=== PATIENT | male | born 1955 | race Caucasian/White ===

== ENCOUNTER 2025-06-15 09:56 | Emergency (ER) | payer MEDICARE, SELFPAY ==
--- NOTE | ~2025-06-15 | XR_ITS ---
EXAMINATION: XR abdomen obstructive series, 06/15/2025 10:30 PHP WEB DEVELOPER HISTORY: difficulty voiding and constipation/diarrheaX 3 DAYS COMPARISON: No comparisons available. Technique: 3 view. Findings: Bowel gas pattern unremarkable. No obstruction. No free air. No abnormal calcifications No acute osseous abnormality. Impression: 1. No acute abnormality. Reviewed, dictated and finalized at location P. WEB DEVELOPER Impression: 1. No acute abnormality.
[2025-06-15 10:19] VITALS: BP 144/72; PULSE 98; RESP 18; TEMP 36.9; O2SAT 100
--- NOTE | 2025-06-15 10:22 | ED_ITS ---
HPI - Male Genitourinary General Chief complaint: Urogenital-Male Stated complaint: Urinary Problem Time Seen by Provider: 06/15/25 10:23 Source: patient, RN notes reviewed and old records reviewed Mode of arrival: ambulatory Limitations: no limitations History of Present Illness HPI Narrative: 69 year old male who presents to [facility] care with complaints of difficulty urinating for the past 3 days, feels like he has to go and only small amounts come out with no abdominal or any back or flank pain. Patient reports that on 06/11 he had nausea vomiting and diarrhea with headache which has resolved. Patient reports that since 06/12 he feels like he needs to have a bowel movement and when he tries only small amounts of liquid stool comes out. Patient denies any pain to abdomen or any back pain with bowel sounds present in all quadrants. Patient denies any history of kidney stones or prior problems with urination. MD Complaint: other (difficulty urinating and having BM) Onset (ago): day(s) (3 days of difficulty with urination) Duration: constant Severity: moderate Related Data Home Medications ?Medication ?Instructions ?Recorded ?Confirmed ?Last Taken ?Type hydrochlorothiazide 12.5 mg tablet mg 06/15/25 Unknow n History tamsulosin 0.4 mg capsule mg PO 06/15/25 Unknown Hist ory Allergies Allergy/AdvReac Type Severity Reaction Status Date / Time codeine AdvReac Intermediate Nausea and Verified 06/15/25 10:21 Vomiting Review of Systems Review of Systems: CONSTITUTIONAL: Denies fever, chills, or sweats. CARDIOVASCULAR: Denies chest pain, palpitations, or edema. RESPIRATORY: Denies cough or dyspnea. GASTROINTESTINAL: Denies abdominal pain, nausea, vomiting, or diarrhea. did have episode on 06/11 which resolved GENITOURINARY: Reports no dysuria,reports frequency, urgency states difficulty urinating with going only small amounts. Denies flank pain or hematuria, denies any abdominal pain. SKIN: Denies rash or itching. MUSCULOSKELETAL: Denies back pain or myalgia. Denies CVA tenderness NEUROLOGIC: Denies headache All systems reviewed & are unremarkable except as noted in HPI and below PMFSH Past Medical History Medical History (Updated 06/16/25 @ 20:26 by Isabelle Sandoval APRN) Hypertension Surgical History Surgical History (Updated 06/16/25 @ 20:16 by Isabelle Sandoval APRN) History of orthopedic surgery right fibula fracture with hardware Social History Social History (Updated 06/15/25 @ 10:42 by Isabelle Sandoval APRN) Smoking status: Never smoker Alcohol intake: current Alcohol use details: social Comments At time of signature, agree with nursing past medical, surgical, social and family history. There is no relevant family history pertinent to the presenting complaint Exam Narrative: GENERAL: Well-appearing, well-nourished, and in no acute distress. HEAD: Normocephalic, atraumatic. NECK: Supple.no lymphadenopathy CHEST: Clear to auscultation. No respiratory distress.SAO2 100% on room air HEART: Regular rate and rhythm. No murmur heard. Normal peripheral pulses. ABDOMEN: Soft, nontender to palpation, nondistended, normal active bowel sounds. No CVA tenderness difficulty urinating only going small amounts states kind of aches when he urinates.Unable to have normal BM since 13th when he tries to go has small amount of liquid stool bowel sounds present in all quadrants. EXTREMITIES: Normal range of motion. No edema. SKIN: Warm, dry, no rash. NEURO: No focal deficits. Alert and oriented x3. Course Course Level of Care: Express Care Visit Vital Signs Vital signs: Vital Signs Temperature 36.9 C 06/15/25 10:19 Pulse Rate 98 06/15/25 10:19 Respiratory Rate 18 06/15/25 10:19 Blood Pressure 144/72 H 06/15/25 10:19 Pulse Oximetry 100 06/15/25 10:19 Oxygen Delivery Room Air 06/15/25 10:19 Temperature 36.9 C 06/15/25 10:19 Pulse Rate 98 06/15/25 10:19 Respiratory Rate 18 06/15/25 10:19 Blood Pressure 144/72 H 06/15/25 10:19 Pulse Oximetry 100 06/15/25 10:19 Oxygen Delivery Room Air 06/15/25 10:19 reviewed MDM MDM Narrative Medical decision making narrative: 69 year old male presents to express care with complaints of 3 day history of difficulty urinating, voids only in small amounts and also reports difficulty with having normal BM, states small amount of liquid stool only. Urine dip with urine cloudy,negative for leukocytes and nitrite; positive for blood, high specific gravity with ketones, protein, and bilirubin elevated, obstructive KUB done with no obstruction or free sir noted. Recommend OTC medication for constipation and started on Cipro antibiotic. Anticipatory guidance and reasons to seek care in ED reviewed with understanding voiced. Differential Diagnosis Differential Diagnosis: Differential diagnostic considerations for male genitourinary issues include urinary tract infection, priapism, epididymitis, prostatitis, acute retention of urine, inguinal hernia, STI exposure, testicular torsion, Leslye?s gangrene. Lab Data MDM Lab Attestation statement: I personally reviewed the patient's lab results. Lab results narrative: urine dip: glucose negative, bilirubin 1+, ketones 2+, specific gravity greater than or equal to 1.030, blood 2+, pH 6.5, protein 2+, urobilinogen 4.0, nitrite negative, leukocytes negative color justin cloudy sent for culture Labs: Lab Results 06/15/25 Range/Units 10:24 POC Urine Color Tea colored POC Urine Clarity Cloudy POC Urine pH 6.5 POC Ur Specif [place] 1.030 POC Urine Protein 2+ (Negative) POC Ur Glucose (UA) Negative (Negative) POC Urine Ketones 2+ (Negative) POC Urine Blood 2+ (Negative) POC Urine Nitrite Negative (Negative) POC Urine Bilirubin 1+ (Negative) POC Urine Urobilinogen 4.0 POC U Leukocyte Esteras Negative (Negative) Imaging Data Attestation: I personally reviewed and interpreted this imaging study as follows: My impression: no obstruction no free air,bowel gas pattern un remarkable Radiologist's impression: ITS Impressions Abdomen X-Ray 06/15/25 10:42 Impression: 1. [place] [address] XRay Report Signed Patient: Kip Romero : 1955 MR#: [id number] Age: 69 Acct:[id number] Loc: [facility] ADM Date: 06/15/[address]: Ordering Physician: Isabelle Sandoval APRN Date of Service: 06/15/25 Procedure(s): XR abdomen obstructive series Accession Number(s): [id number] cc: Ashly, Vincent DSOUZA; Jaime, Isabelle L. SECURITY INSTALLATION TECHNICIAN~ EXAMINATION: XR abdomen obstructive series, 06/15/2025 10:30 CURRICULUM DEVELOPMENT COORDINATOR HISTORY: difficulty voiding and constipation/diarrheaX 3 DAYS COMPARISON: No comparisons available. Technique: 3 view. Findings: Bowel gas pattern unremarkable. No obstruction. No free air. No abnormal calcifications No acute osseous abnormality. Impression: 1. No acute abnormality. Reviewed, dictated and finalized at location P. ICULUM DEVELOPMENT COORDINATOR Please be advised this is a medical document. It is intended for [id number] communication. It is written in medical language and may contain unfamiliar abbreviations or verbiage. Medical documents are intended to carry relevant information, facts as evident, and the clinical opinion of the practitioner at the time of the encounter. This report may have been done utilizing a voice recognition system. Attempts have been made to correct errors. However, there may be uncorrected grammatical, spelling, and recognition errors present. The file time of this note does not necessarily represent the time of service. Dictated By: Yordy Issa MD 06/15/25 1042 Signed By: <Electronically signed by Yordy Issa MD in OV> Critical Care Time Critical Care Time Critical Care Time: No Discharge Plan Discharge Clinical Impression: Urethritis Constipation Qualifiers: Constipation type: unspecified constipation type Qualified Code(s): K59.00 - Constipation, unspecified Patient Disposition: Home Condition: Stable Instructions: Antibiotic Form, Urethritis (ED) Additional Instructions: Increase fluids especially cranberry juice and water Avoid caffeine and carbonated beverages Antibiotic as directed Tylenol/ibuprofen for pain or fever Follow-up with her primary care provider if further problems or concerns Recheck if you have fever over 101, nausea and vomiting. Miralax daily for constipation and initially take Ducolax suppository If continued difficulty with urination or any increased symptoms or any pain go to the emergency room immediately If your symptoms persist, change or worsen significantly before you can contact your personal physician then please, without delay, go to the emergency department for further evaluation. Follow-up with PCP in 7-10 days or sooner if needed Follow up with PCP soon in regards to your blood pressure which is elevated above threshold for referral. Blood pressure above 120/80 may indicate pre- hypertension. 144/72 Patient Language: [place] Prescriptions: New ciprofloxacin HCl 500 mg tablet 500 mg PO Q12H Qty: 14 0RF Rx Instructions: take with food No Action tamsulosin 0.4 mg capsule PO hydrochlorothiazide 12.5 mg tablet Follow-up/Referrals: Ashly,MD Vincent [Primary Care Provider, Unknown] Time of Disposition: 10:59 Quality [place] Coma Scale Eyes: Open Verbal: Oriented and Alert Motor: Follows Commands Chandan Coma Total Score: 15
[2025-06-15 11:01] LABS: EDUAAPPEAR Cloudy; EDUABILI 1+ (Negative); EDUABLOOD 2+ (Negative); EDUACOLOR1 Tea Colored; EDUAGLUCOSE Negative (Negative); EDUAKETONE 2+ (Negative); EDUALEUKO Negative (Negative); EDUANITRATE Negative (Negative); EDUAPH 6.5; EDUAPROTEIN 2+ (Negative); EDUASPGRAVITY 1.030; EDUAUROBILI 4.0
--- OUTSIDE RECORDS SUMMARY | 2025-06-15 11:22 | XMS_ITS | Clinical Summary ---
Author Organization [facility] Address [address] [place] [address] Care Team Providers [facility] Field Coordinator Name Role Phone Vincent Limon MD Primary Care Provider [phone] Allergies Active Allergy Reactions Criticality Noted Date Comments Codeine Nausea & Vomiting Low 07/01/2018 Medications multivitamin capsuleIndicati ons:Vitamin Deficiency Prevention Take 1 capsule by mouth daily Active calcium acetate (PHOSLO) 667 mg tablet Take 2 tablets (1,334 mg total) by mouth daily Active ascorbic acid (JENIFER-C ORAL) Take by mouth Ac tive sildenafiL (VIAGRA) 50 mg tablet Take 1 tablet (50 mg total) by mouth daily as needed for erectile dysfunction 30 tablet 2 4 Active hydroCHLOROthia zide 12.5 mg tablet Take 1 tablet by mouth once daily 90 tablet 5 Active predniSONE (DELTASONE) 10 mg tabletIndicatio ns: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 13 tablet 5 Active tamsulosin (FLOMAX) 0.4 mg extended release capsule Take 1 capsule by mouth once daily 100 capsule 5 Active Active Problems Problem Noted Date Diagnosed Date Erectile dysfunction 02/20/2024 Assessment & Plan (02/20/2024 3:29 PM CDT): Greatly improved. Minimally requiring p.r.n. use at this time. Plan: Continue sildenafil 50 mg daily p.r.n.. Continue healthy lifestyle and regular exercise. Snoring 02/20/2024 Assessment & Plan (02/20/2024 3:31 PM CDT): Endorses poor sleep quality and snoring. EPS score of 3. Risk factors of hypertension. Ddx of RAJ versus idiopathic snoring. Plan: Will refer to sleep Medicine for further evaluation. Consider trial of bimodal sleep pattern in the interim. Right hip pain 05/09/2022 Assessment & Plan (05/09/2022 9:00 PM PRODUCTION MACHINE COMPUTER OPERATOR): Unclear if piriformis vs hip OA; good relief with Aleve, occasional use Personal history of colonic polyps 04/25/2021 Overview (04/25/2021): Added automatically from request for surgery [id number] Encounter for screening colonoscopy 04/25/2021 Overview (04/25/2021): Added automatically from request for surgery [id number] Dyslipidemia, goal LDL below 100 04/25/2021 Assessment & Plan (08/25/2024 2:25 PM PRODUCTION MACHINE COMPUTER OPERATOR): Stable, well controlled, continue to follow, encourage low-fat high-fiber diet Assessment & Plan (08/07/2023 5:51 PM PRODUCTION MACHINE COMPUTER OPERATOR): LDL above goal; room for improvement in diet; encourage low-fat high-fiber diet Assessment & Plan (05/09/2022 8:58 PM PRODUCTION MACHINE COMPUTER OPERATOR): Lipids generally well controlled, though LDL above target of <100 ASCVD risk is intermediate at 11.9% Encourage low fat, claudia fiber diet Discuss stain therapy if no improvement Assessment & Plan (10/24/2021 2:52 PM CDT): Stable, well controlled; patient has lost about 50 lb since last visit Has been cutting back on eating meals increased activity Encouraged continued dietary and activity changes in order to control weight as well as health risk associated with blood pressure and lipid levels Assessment & Plan (04/25/2021 3:12 PM CDT): Patient has mildly high-normal total cholesterol and LDL cholesterol; ASCVD increased to 14% -patient prefers to avoid medications, will focus on diet and activity changes to improve cholesteol and blood pressure 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 Assessment & Plan (11/06/2022 1:38 PM CDT): Stable, well controlled, continue Viagra 50 mg p.r.n. Assessment & Plan (05/09/2022 8:59 PM PRODUCTION MACHINE COMPUTER OPERATOR): Stable, well controlled; good response to current medications Continue Sildenafil 50 mg prn Assessment & Plan (10/24/2021 2:52 PM CDT): Stable, well controlled; continue sildenafil 50 mg daily as needed Assessment & Plan (04/25/2021 3:13 PM CDT): Stable, well controlled; continue Viagra 50 mg prn Assessment & Plan (01/24/2021 2:44 PM CDT): Some response with nonmedical therapies including penile lean, patient would like to give trial of Viagra Will start Viagra 25 mg, patient can taper up as necessary and will re-evaluate at follow-up appointment to determine best dose for long-term treatment Benign essential hypertension 04/15/2020 Assessment & Plan (08/25/2024 2:24 PM PRODUCTION MACHINE COMPUTER OPERATOR): Stable, well controlled, blood pressure at goal Continue hydrochlorothiazide 12.5 mg daily Assessment & Plan (02/20/2024 3:27 PM CDT): Chronic. Controlled. Asymptomatic. Plan Continue hydrochlorothiazide 12.5 mg b.i.d.. Assessment & Plan (08/07/2023 5:51 PM PRODUCTION MACHINE COMPUTER OPERATOR): Stable, well controlled; blood pressure mildly elevated today; home measurements usually range from 115-125 Continue hydrochlorothiazide 12.5 mg daily Assessment & Plan (11/06/2022 1:38 PM CDT): Stable, well controlled; blood pressure at target with no orthostatics dizziness, no headaches or chest pain Continue hydrochlorothiazide 12.5 mg daily Continue with regular exercise and weight loss Assessment & Plan (05/09/2022 8:59 PM PRODUCTION MACHINE COMPUTER OPERATOR): Stable, well controlled, bp at target Continue HCTZ 12.5 mg daily Assessment & Plan (10/24/2021 2:52 PM CDT): Stable well controlled; no headaches chest pain or orthostatics Continue hydrochlorothiazide 12.5 mg daily Assessment & Plan (04/25/2021 3:13 PM CDT): Well controlled, continue to monitor; encourage impovement to decrease ASCVD risk score -continue HCTZ 12.5 mg Assessment & Plan (01/24/2021 2:44 PM CDT): Stable, well controlled Will continue hydrochlorothiazide 12.5 mg and monitor blood pressure as well as electrolytes with regular metabolic panel Assessment & Plan (07/19/2020 12:46 PM PRODUCTION MACHINE COMPUTER OPERATOR): Stable, well controlled, below target bp of 140/90 Will continue HCTZ 12.5 mg, continue to monitor Assessment & Plan (04/15/2020 11:53 AM CDT): Stable, well controlled Patient reports weight loss of 30-40 lb in the last 10 months and increased physical activity Given health improvements, and concern regarding erectile function will adjust blood pressure medications, discontinue lisinopril and continue hydrochlorothiazide 12.5 Patient to continue to measure blood pressures at home 2-3 times per week and if blood pressures remain greater than 140 systolic or 90 diastolic patient to contact clinic to be adjust blood pressure medicines Follow-up in 3 months given changes to medication Benign prostatic hyperplasia with post-void drib adebayo 04/15/2020 Assessment & Plan (08/25/2024 2:25 PM PRODUCTION MACHINE COMPUTER OPERATOR): Stable, well controlled, good relief with current medications Continue Flomax 0.4 mg daily Assessment & Plan (02/20/2024 3:27 PM CDT): Stable. Well-controlled at this time. Plan: Continue Flomax 0.4 mg daily. Assessment & Plan (08/07/2023 5:51 PM PRODUCTION MACHINE COMPUTER OPERATOR): Stable, well controlled; no major issues with urination Continue tamsulosin 0.4 mg daily, continue to monitor annual PSAs Assessment & Plan (11/06/2022 1:38 PM CDT): Stable, well controlled; no LUTS Continue tamsulosin 0.4 mg daily Assessment & Plan (05/09/2022 9:00 PM PRODUCTION MACHINE COMPUTER OPERATOR): Stable, well controlled; improved urinary stream with medication Continue Tamsulosin 0.4 mg daily Assessment & Plan (10/24/2021 2:52 PM CDT): Stable, well controlled; continue tamsulosin 0.5 mg daily Assessment & Plan (04/25/2021 3:14 PM CDT): Stable, well contolled, continue Tamsulosin 0.4 mg Assessment & Plan (01/24/2021 2:45 PM CDT): Continues to have LUTS, would like to restart tamsulosin 0.4 mg daily at this time Will continue to re-evaluate will determine if patient would benefit from other therapies, are needs referral to Urology for evaluation of other treatment BPH Assessment & Plan (07/19/2020 12:47 PM PRODUCTION MACHINE COMPUTER OPERATOR): Stable, patient reports some continued symptoms of weak urine stream, but declines medical therapy today Assessment & Plan (04/15/2020 11:52 AM CDT): Stable, controlled Patient reports he has no symptoms of nocturia, urinary tension, or incomplete emptying of bladder Only issue is related to postvoid dribbling Patient would like to discontinue medications, gave patient non medical therapies in order to help with postvoid dribbling Will recheck in 3 months to determine if therapy should be restarted Resolved Problems Problem Noted Date Diagnosed Date Resolved Date Displaced fracture of fifth metatarsal bone of left foot with routine healing 08/20/20182018 Status post open reduction a nd internal fixation (ORIF) of syndesmosis 07/21/2018 9 Syndesmotic disruption of an kle, right, initial encounter 07/07/2018 11/21/2018 Overview (07/07/2018): Added automatically from request for surgery [id number] Closed displaced Maisonneuve 's fracture of right leg 07/07/2018 11/21/2018 Overview (07/07/2018): Added automatically from request for surgery [id number] Encounters Date Type Department Care Team Description 04/27/2025 11:45 AM CDT Office Visit [facility] [place] [address] [place] [address] Madelin Jones, EMY 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) from Last 3 Months Immunizations Immunization Administration Dates Next Due Influenza, Quadrivalent, Hig h Dose, Preservative Free, Intrr 05/09/2022,04/25/2021 Influenza, Quadrivalent, Spl it, Intramuscular 06/03/2018,04/27/2016 Influenza, Quadrivalent, Spl it, Preservative Free, Intramuscular 04/15/2020 Influenza, Trivalent, High D ose, Split, Preservative Free, Intramuscular 08/06/2019 Influenza, Unspecified 08/25/2024(Deferr ed: Patient Refused),03/31/2023 Pneumococcal Conjugate PCV 13 07/26/2016 Pneumococcal Polysaccharide PPV23 08/06/2019 Tdap 07/10/2018 Surgical History Surgery Date Site/Laterality Comments KNEE ARTHROSCOPY 07/01/2006 - 06/30/2007 Left FOOT SURGERY 07/01/2018 - 07/31/2018 ANKLE FRACTURE SURGERY 07/01/2018 - 07/31/2018 Bilateral broken tibia, dislocated right ankle COLONOSCOPY 06/11/2014 Medical History Medical History Date Comments Known health problems: none Hypertension Family History Medical History Relation Name Comments Dementia Father Breast cancer Mother Arthritis Neg Hx Cancer Neg Hx Hypertension Neg Hx Stroke Neg Hx Relation Name Status Comments Father Mother Social History Tobacco Use Types Packs/Day Years Used Date Smoking Tobacco: Former Cigarettes Q uit: 1976 Smokeless Tobacco: Never Tobacco Cessation:Counseling Given: Not Answered Alcohol Use Standard Drinks/Week Comments Yes 0 (1 standard drink = 0.6 oz pur e alcohol) social AUDIT-C Answer Date Recorded Q1: How often do you have a drink containing alcohol? 4 or more times a week 02/20/2024 Q2: How many drinks containi ng alcohol do you have on a typical day when you are drinking? 1 or 2 Q3: How often do you have si x or more drinks on one occasion? Never 02/20/2024 PHQ-2 Answer Date Recorded PHQ-2 Total Score (If total score is 3 or more points, staff should administer the PHQ-9) 0 08/25/2024 Sex and Gender Information Value Date Recorded Sex Assigned at Not on file Legal Sex Male 3:11 PM PRODUCTION MACHINE COMPUTER OPERATOR Gender Identity Not on file Sexual Orientation Not on file Last Filed Vital Signs Vital Sign Reading Time Taken Comments Blood Pressure 132/86 04/27/2025 11:28 AM CDT Pulse 59 04/27/2025 11:28 AM CDT Temperature 36.4 C (97.6 F) 04/27/2025 11:28 AM CDT Respiratory Rate 16 04/27/2025 11:28 AM CDT Oxygen Saturation 99% 04/27/2025 11:28 AM CDT Inhaled Oxygen Concentration - - Weight 84.4 kg (186 lb) 04/27/2025 11:28 AM CDT Height 177.8 cm (5' 10) 04/27/2025 11:28 AM CDT Body Mass Index 26.69 04/27/2025 11:28 AM CDT Plan of Treatment Health Maintenance Due Date Last Done Comments Zoster Vaccine (1 of 2) 2004 Influenza Vaccine (#1) 2025 3, 05/09/2022, 04/25/2021, Additional history exists Depression Screening 08/25/2025 08/25/2024, 08/07/2023, 11/06/2022, Additional history exists Fall Risk Assessment 08/25/2025 08/25/2024, 02/20/2024, 08/07/2023, Additional history exists Well Visit 65+ 08/25/2025 08/25/2024, 12/2023, 05/09/2022 Colon Cancer Screening-Colonoscopy 08/02/2026 08/02/2021, 06/11/2014, 06/11/2014 DTaP/Tdap/Td Vaccine (2 - Td or Tdap) 07/10/2028 07/10/2018 Pneumococcal vaccine 65+ Completed 08/06/2019, 07/02 Hepatitis C Screening Completed 07/19/2020 Colon Cancer Screening-CT Colonography Discontinued 08/02/2021, 06/11/2014, 06/11/2014 Colon Cancer Screening-DNA Stool Discontinued 08/02/2021, 06/11/2014, 06/11/2014 Colon Cancer Screening-FIT Discontinued 08/02, 06/11/2014, 06/11/2014 Colon Cancer Screening-Sigmoidoscopy Discontinued 08/02/2021, 06/11/2014, 06/11/2014 Prostate Cancer Screening-PSA Discontinued , 11/01/2022, 07/19/2020 Hepatitis B Screening Completed 08/25/2024 Abdominal Aortic Aneurysm (A AA) Screen Discontinued Medical Devices Implanted Type Area Mechanical Design Drafter Device Identifier Shelf Expiration Date Model / Serial / Lot Plate Buttress Implanted:Qty: 1 on 07/08/2018 by Jonatan Ritchie MD at [facility] Right: Ankle [employer] [id number] / / [id number] [employer] Ar-[id number] Tightrope Cannulated Kit Endoscopic Instrument Stainless Steel - [id number] Implanted:Qty: 2 on 07/08/2018 by Jonatan Ritchie MD at [facility] Right: Ankle [employer] 07/31/2022 [id number] / / [id number] Procedures Procedure Name Priority Date/Time Associated Diagnosis Comments PSA SCREEN Routine 01/16/2024 10:40 AM CDT Screening PSA (prostate specific antigen) Benign prostatic hyperplasia with post-void dribbling COLONOSCOPY 08/02/2021 8:09 AM PRODUCTION MACHINE COMPUTER OPERATOR HEPATITIS C ANTIBODY Routine 07/19/2020 1:11 PM PRODUCTION MACHINE COMPUTER OPERATOR Annual physical exam from Last 3 Months or Most Recently Relevant to Health Maintenance Results * PSA screen (01/16/2024 10:40 AM CDT) PSA-Total 1.52 <=5.40 ng/mL Comment: Interpretive Data AGE SEX REFERENCE INTERVAL 0 minutes-150 years Female None 0 minutes-49 years Male None 50-59 years Male 0-3.90 60-69 years Male 0-5.40 70-79 years Male 0-6.20 80-150 years Male 0-6.20 The Arabella PSA Total assay procedure was used. Results from different manufacturers or methods may not be comparable. Serial testing should be performed using the same method. Current interpretive data last revised 21. Testing performed by: [facility], [address] [place] [address]., [id number] Blood 01/16/2024 10:4 0 AM CDT 01/16/2024 9:38 PM CDT us Vincent Limon MD LAB BLOOD ORDERABLES Magda l Result Performing Organization Address City/State/[facility] Co de Phone Number [id number] [facility] Department [place] [address] * COLONOSCOPY (08/02/2021 8:09 AM PRODUCTION MACHINE COMPUTER OPERATOR) Anatomical Region Laterality Modality Other Narrative Procedure Note Connie Li MD - 08/02/2021 8:09 AM CST [facility] Patient Name: Kip Romero Procedure Date: 08/02/2021 8:09 AM Date of : 1955 Admit Type: Outpatient Age: 66 Gender: Male Attending MD: Connie Li M.D. Room: [facility] RO[facility] 1 Note Status: Finalized Patient Profile: This is a 66 year old male. No family history ofcolon cancer. History of adenoma polyps. Procedure: Colonoscopy Indications: Surveillance: Personal history of adenomatouspolyps on last colonoscopy > 5 years ago, Lastcolonoscopy: May 2012 Referring MD: Vincent Limon M.D. Providers: Connie Li M.D. Impression: - Two 3 to 5 mm polyps in the descending colon andin the ascending colon, removed with a jumbo cold forceps. Resected and retrieved. - Diverticulosis in the sigmoid colon. - Internal hemorrhoids. Recommendation: - Await pathology results. - Repeat colonoscopy in 5 years for screeningpurposes. - Continue present medications. Medicines: Monitored Anesthesia Care Complications: No immediate complications. Estimated Blood Loss: Estimated blood loss: none. Procedure: Pre-Anesthesia Assessment: - Prior to the procedure, a History and Physicalwas performed, and patient medications and allergieswere reviewed. The patient's tolerance of previous anesthesia was also reviewed. The risks andbenefits of the procedure and the sedation options and risks were discussed with the patient. All questions were answered, and informed consent was obtained. Prior Anticoagulants: The patient has taken no previous anticoagulant or antiplatelet agents. ASA Grade Assessment: II - A patient with mild systemicdisease. After reviewing the risks and benefits, the patient was deemed in satisfactory condition to undergo the procedure. The benefits, risks and alternatives of theprocedure and sedation were discussed and informed consentwas obtained. All questions were answered. Please referto the signed informed consent document in the medical record. The scope was passed under direct vision.The Pediatric Colonoscope [id number]-H190L [id number] was introduced through the anus and advanced to the the cecum, identified by appendiceal orifice andileocecal valve. The bowel preparation used was Miralax via split dose instruction. The bowel preparation usedwas bisacodyl tablets via split dose instruction. The quality of the bowel preparation was excellent.Bowel prep was administered using a split dose. Findings: The perianal and digital rectal examinations were normal. The cecum appeared normal. Two sessile polyps were found in the descending colon and ascending colon. The polyps were 3 to 5 mm in size. These polyps were removedwith a jumbo cold forceps. Resection and retrieval were complete. Multiple small-mouthed diverticula were found in the sigmoid colon. Internal hemorrhoids were found during retroflexion. The hemorrhoids were small. Electronically signed by Connie Li M.D. Connie Li M.D. 08/02/2021 8:49:56 AM Number of Addenda: 0 Note Initiated On: 08/02/2021 8:09 AM Procedure Code(s): --- Professional --- 25864, Colonoscopy, flexible; with biopsy, single or multiple Diagnosis Code(s): --- Professional --- Z86.010, Personal history of colonic polyps K64.8, Other hemorrhoids K63.5, Polyp of colon K57.30, Diverticulosis of large intestine without perforation orabscess without bleeding CPT copyright 2019 [employer]. All rights reserved. The codes documented in this report are preliminary and upon information coder reviewmay be revised to meet current compliance requirements. Recognized by the [employer] for promoting quality in endoscopy Connie Li MD ENDOSCOPY PROCEDURES Final Result * Hepatitis C antibody (07/19/2020 1:11 PM PRODUCTION MACHINE COMPUTER OPERATOR) Hep C Ab Nonreactive Nonreactive [facility] Comment: Interpretive Data Nonreactive: Antibodies to HCV not detected. Does NOT exclude the possibility of recent exposure to HCV. Equivocal: Equivocal for HCV antibodies. Supplemental molecular testing will be automatically performed to determine infection status in accordance with current CDC screening recommendations. Reactive: Positive for HCV antibodies. This may represent current or past HCV infection. Supplemental molecular testing will be automatically performed to determine current infection status in accordance with current CDC screening recommendations. Interpretive data was last revised on 2019. Blood specimen (specimen) 07/19/2020 1:11 PM PRODUCTION MACHINE COMPUTER OPERATOR 07/19/2020 5:30 PM PRODUCTION MACHINE COMPUTER OPERATOR Vincent Limon MD LAB MICROBIOLOGY - GENERA L ORDERABLES Final Result [place] [id number] [address] Department of Laboratories [place] [id number] from Last 3 Months or Most Recently Relevant to Health Maintenance Insurance [facility] [place] [address] [facility] [place] [address] Advance Directives For more information, please contact: [phone] * Full Code (Latest Code Status on File) Date Activated Date Inactivated Comments 08/02/2021 7:33 AM 08/02/2021 1:48 PM Care Teams [facility] Field Coordinator Relationship Specialty Start Date End Date Vincent Limon MD [address] [place] [address] PCP - General Family Medicine 04/15/20
== END 2025-06-15 11:05 | disposition home or self-care (01) ==
PROVIDERS: Emergency Provider Registered Nurse; PCP Hospitalist
DX: N34.2 Other urethritis (principal); K59.00 Constipation, unspecified; I10 Essential (primary) hypertension
CPT/HCPCS: 74019; 81003; 87086; 99203; G0463